=== PATIENT | male | born 1955 | race Caucasian/White ===

== ENCOUNTER 2016-11-22 07:58 | Outpatient (CLI) | payer MEDICAID ==
[~2016-11-22] VITALS: Ht 170.2 cm; Wt 118.2 kg
--- NOTE | ~2016-11-22 | HEMODYNAMI ---
PATIENT:COLBY LOVING MEDICAL RECORD: [id number] : 57 LOCATION:[facility] ADMISSION DATE: 11/22/16 Generatedon:11/22/201611:37 Patient name: COLBY LOVING Patient #: [id number] SSN: : 1955 Date of study: 11/22/2016 Page: Of Hemodynamic Procedure Report Patient Data Patient Demographics Procedure consent was obtained First Name: COLBY Gender: Male Last Name: FABIENNE : 1955 Middle Initial: EDENILSON Age: 61 year(s) Patient #: [id number] Race: Unknown Additional ID: [id number] Contact details [address]: [address] [place] [address] ROAD State: [place] City: [place] Zip code: [address] Past Medical History Performed procedures and imaging results Date Procedure Procedure Results Comments 11/08/2016 Stress testing Positive inferoapically with SPECT MPI Allergies Allergen Reaction Date Comments Reported Other allergy 11/22/2016 N Admission Admission Data Admission Date: 11/22/2016 Admission Time: 7:58 Admit Source: Other Insurance Payor: Private health insurance Height (in.): 67 BSA: 2.26 (m2) Height (cm.): 170.18 BMI: 40.81 (kg/m2) Weight (lbs.): 260.54 Weight (kg.): 118.18 Medications upon Admission Medications Dosage Times Administered Last Remarks per Delivery Day Date and Time Clopidogrel Yes 11/22/2016 0:00 Lab Results Lab Result Date: 11/22/2016 Lab Result Time: 8:00 Biochemistry Name Units Result Min Max BUN mg/dl 15 --(--*-)-- 7 18 Creatinine mg/dl 0.9 --(-*--)-- 0.6 1.3 CBC Name Units Result Min Max Hematocrit % 39.7 -*(----)-- 42 54 Hemoglobin g/dl 13.3 -*(----)-- 13.5 17.5 Procedure Procedure Types Cath Procedure Diagnostic Procedure [facility] w/Coronaries Miscellaneous Procedures Moderate Sedation up to 30 minutes Procedure Description Procedure Date Procedure Date: 11/22/2016 Procedure Start Time: 11:23 Procedure End Time: 11:32 Procedure Staff Name Function Ross Longo RN Nurse Balaji Almazan MD Performing Physician Emmett Nelson RT Monitor Johanny Lucas RT Scrub Procedure Data Cath Procedure Fluoroscopy Diagnostic fluoroscopy Total fluoroscopy Time: 1.2 time: 1.2 min min Diagnostic fluoroscopy Total fluoroscopy dose: 523 dose: 523 mGy mGy Contrast Material Contrast Material Type Amount (ml) Isovue 300 94 Entry Location Entry Primary Successful Side Size Upsize Upsize Entry Closure Borrego ccessful Closure Location (Fr) 1 (Fr) 2 (Fr) Remarks Device Remarks Radial Right 6 Fr Mechanical artery Short Compression Estimated blood loss: 5 ml Diagnostic catheters Device Type Used For End Catheter Placement Cordis RBL 4 catheter (NO Procedure CHARGE) Procedure Complications No complications Procedure Medications Medication Administration Route Dosage Oxygen NC 2 l/min Lidocaine 2% added to field 20 Heparin Flush Bag added to field 2 bags (1000units/500ml NS) 0.9% NaCl I.V. 100 ml/hr Versed I.V. 1 mg Fentanyl I.V. 50 mcg Versed I.V. 1 mg Fentanyl I.V. 50 mcg Versed I.V. 1 mg Fentanyl I.V. 50 mcg Radial Cocktail I.A. 1 syringe (Verapomil 2mg/Nitro 400mcg/Heparin 1500units) Versed I.V. 1 mg Fentanyl I.V. 50 mcg Hemodynamics Rest HGB: 13.3 (g/dl) Heart Rate: 83 (bpm) Snapshots Pre Cath Intra NCS Post Cath Vital Signs Time Heart Resp SPO2 etCO2 TE5tviv NIBP (mmHg) Rhythm Pain Sedatio n Rate (ipm) (%) (mmHg) (mmHg) Status Level (bpm) 10:49:04 82 22 97 0 0 177/109(151) NSR 0 (11) 10(A) , No pain 10:53:42 84 19 97 0 0 164/118(147) NSR 0 (11) 10(A) , No pain 10:58:15 90 17 96 0 0 182/111(144) NSR 0 (11) 10(A) , No pain 11:02:54 89 18 96 0 0 176/114(147) NSR 0 (11) 10(A) , No pain 11:07:30 89 18 96 0 0 171/111(135) NSR 0 (11) 10(A) , No pain 11:12:04 84 17 95 0 0 169/110(137) NSR 0 (11) 10(A) , No pain 11:16:39 87 18 96 0 0 170/118(137) NSR 0 (11) 9(A) , No pain 11:21:13 87 18 95 0 0 170/107(138) NSR 0 (11) 9(A) , No pain 11:25:48 87 18 96 0 0 165/104(136) NSR 0 (11) 9(A) , No pain 11:30:18 88 17 94 0 0 156/100(122) NSR 0 (11) 10(A) , No pain Medications Time Medication Route Dose Verified Delivered Reason Notes Effectiveness by by 10:46:50 Oxygen NC 2 l/min Balaji Buffie used for Tha Longo RN procedure 10:46:56 Lidocaine 2% added 20ml Balajimeeta Carpio for local to vial Tha Almazan MD anesthetic field 10:47:02 Heparin Flush added 2 bags Balaji Carpio used for Bag to Tha Almazan MD procedure (1000units/500ml field NS) 10:47:12 0.9% NaCl I.V. 100 Balaji Buffie Per ml/hr Tha Longo RN physician 11:13:21 Versed I.V. 1 mg Balaji Jamisonie for sedation Tha Longo RN 11:13:27 Fentanyl I.V. 50 mcg Balaji Buffie for sedation Tha Longo RN 11:17:00 Fentanyl I.V. 50 mcg Balaji Buffie for sedation Tha Longo RN 11:17:57 Versed I.V. 1 mg Balaji Buffie for sedation Tha Longo RN 11:23:20 Versed I.V. 1 mg Balaji Buffie for sedation Tha Longo RN 11:23:24 Fentanyl I.V. 50 mcg Balaji Jamisonie for sedation Tha Longo RN 11:25:19 Radial Cocktail I.A. 1 Balaji Balaji for (Verapomil syringe Tha Almazan MD vasodilation 2mg/Nitro 400mcg/Hepari 11:27:33 Versed I.V. 1 mg Balaji Carpio for sedation Tha Almazan MD 11:27:37 Fentanyl I.V. 50 mcg Balaji Carpio for sedation Tha Almazan MD Procedure Log Time Note 10:02:23 Reza Warner RT(R) was relieved by Emmett Omar RT(R) as monitoring person 10:02:40 Informed consent obtained and on chart 10:03:07 Diagnostic Cath Status : Elective 10:03:11 Admit Source: Other 10:03:14 Johanny Lucas RT(R) sent for patient. Start room use. 10:03:15 Time tracking: Regular hours 10:03:19 Plan of Care:Hemodynamics will remain stable., Cardiac rhythm will remain stable., Comfort level will be maintained., Respiratory function will remain adequate., Patient/ family verbilizes understanding of procedure., Procedure tolerated without complication., Recovers from procedure without complications.. 10:03:27 ACC Patient presents with Stable Angina CCS Anginal Class 2--Slight limitation of ordinary activity. 10:08:43 Patient allergic to Other allergyPCN 10:12:05 Lab Result : Hemoglobin 13.3 g/dl 10:12:05 Lab Result : Hematocrit 39.7 % 10:12:05 Lab Result : BUN 15 mg/dl 10:12:05 Lab Result : Creatinine 0.9 mg/dl 10:31:33 Patient received from Pre/Post Procedure Room to CCL 1 Alert and oriented. Tansferred to table in Supine position. 10:31:34 Warm blankets applied, and jacobo hugger turned on for patient comfort. 10:31:35 ECG and BP/O2 sat monitors applied to patient. 10:31:35 Correct patient and procedure confirmed by team. 10:31:41 H&P Date Dictated: 11/22/2016 Within 30 days and on chart., H&P Addendum completed by physician on day of procedure. (MUST COMPLETE FOR ALL OUTPATIENTS). 10:31:43 Pre-procedure instructions explained to patient. 10:31:43 Pre-op teaching completed and patient verbalized understanding. 10:38:09 Patient NPO since Midnight. 10:38:12 Is the patient allergic to Iodine/contrast media? No. 10:38:17 Is patient on blood thinner?Yes 10:38:22 ACC The patient was administered the following blood thiners within the last 24 hours: ACCPlavix 10:38:25 Patient diabetic? Yes. 10:38:28 If diabetic: On Metformin? Yes 10:38:32 If on Metformin: Last Dose? 11/20/2016 10:38:40 Snore? Yes 10:38:42 Sleep apnea? No 10:38:45 Opens mouth fully? Yes 10:38:53 Patient pain scale 0/10 ?. 10:39:02 IV patent on arrival in left hand with 0.9% NaCl at [facility]. 10:39:14 Right Radial & Right Groin area was prepped with chlora-prep and draped in sterile fashion 10:39:16 Sharps counted by scrub and verified by R.N. 10:39:16 Alarms reviewed by R. N. 10:39:18 Physician paged 10:46:50 Oxygen 2 l/min NC was given by Ross Longo RN; used for procedure; 10:46:56 Lidocaine 2% 20ml vial added to field was given by Balaji Almazan MD; for local anesthetic; 10:46:58 Deviated septum? No 10:46:59 Sticks out tongue? Yes 10:47:01 Airway obstruction? No ? 10:47:02 Heparin Flush Bag (1000units/500ml NS) 2 bags added to field was given by Balaji Almazan MD; used for procedure; 10:47:03 Dentures? No ? 10:47:12 0.9% NaCl 100 ml/hr I.V. was given by Ross Longo RN; Per physician; 10:47:21 Use device set Radial Dx 10:47:23 Tegaderm 4 x 4 opened to sterile field. 10:47:24 Acist Hand Control opened to sterile field. 10:47:24 Acist Manifold opened to sterile field. 10:47:26 Medline Cath Pack opened to sterile field. 10:47:26 Acist Syringe opened to sterile field. 10:47:27 Terumo 6Fr Slender Glidesheath opened to sterile field. 10:47:27 Bag Decanter opened to sterile field. 10:47:28 St Canelo 260cm J .035 wire opened to sterile field. 10:47:33 Vital chart was started 10:47:34 Baseline sample Acquired. 10:47:50 Rhythm: sinus rhythm 10:47:52 Full Disclosure recording started 10:48:14 Patient Height : 67 inches 10:48:20 Patient Weight : 260.54 lbs 10:48:27 Insurance Payor : Private health insurance 11:11:04 Final Timeout: patient, procedure, and site verified with staff and physician. All members of the team are in agreement. 11:11:04 --------ALL STOP TIME OUT------ 11:11:06 Right Radial & Right Groin site verified by team. 11:11:09 Physical assessment completed. ASA score P 2 - A patient with mild systemic disease as per Balaji Almazan MD. 11:11:12 Sedation plan: IV Moderate Sedation Versed, Fentanyl 11:11:37 Zero performed for pressure channel P1 11:13:21 Versed 1 mg I.V. was given by Ross Longo RN; for sedation; 11:13:27 Fentanyl 50 mcg I.V. was given by Ross Longo RN; for sedation; 11:17:00 Fentanyl 50 mcg I.V. was given by Ross Longo RN; for sedation; 11:17:57 Versed 1 mg I.V. was given by Ross Longo RN; for sedation; 11:23:20 Versed 1 mg I.V. was given by Ross Longo RN; for sedation; 11:23:24 Fentanyl 50 mcg I.V. was given by Ross Longo RN; for sedation; 11:23:37 Procedure started. 11:23:46 Local anesthetic to right radial artery with Lidocaine 2% by Balaji Almazan MD.INITIAL ACCESS ONLY 11:24:17 A 6 Fr Short sheath was inserted into the Right Radial artery 11:25:07 A CordGanos RBL 4 catheter (NO CHARGE) was advanced over the wire and used for Procedure. 11:25:19 Radial Cocktail (Verapomil 2mg/Nitro 400mcg/Heparin 1500units) 1 syringe I.A. was given by Balaji Almazan MD; for vasodilation; 11:25:46 LV gram done using [place]FF[place]ELD 11:25:50 Injector settings: Ml/sec: 5, Volume: 15, 11:25:52 LV hemodynamics recorded. 11:26:41 EF : 60 % 11:26:47 High Pressure Extension Tubing (Coker) opened to sterile field. 11:27:02 RCA angiography performed. 11:27:33 Versed 1 mg I.V. was given by Balaji Almazan MD; for sedation; 11:27:37 Fentanyl 50 mcg I.V. was given by Balaji Almazan MD; for sedation; 11:28:19 LCA angiography performed. 11:28:38 Catheter removed. 11::48 Sheath removed intact; hemostasis achieved with Mechanical Compression to the Right Radial artery. 11:28:51 Procedure ended.(Physican Out) 11:29:09 Terumo TR Band Large opened to sterile field. 11:29:18 Fluoroscopy time 01.20 minutes. 11:29:24 Fluoroscopy dose: 523 mGy 11:29:24 Flurop Dose total: 523 11:30:44 Contrast amount:Isovue 300 94ml. 11:31:00 Sharps counted by scrub and verified by R.N. 11:31:04 TR band inflated with 12cc of air. 11:31:05 Insertion/operative site no bleeding no hematoma. 11:31:12 Post-op/insertion site Right Radial artery dressed using a 4 x 4 and Tegaderm. 11:31:24 Post right radial artery:stable, soft, clean and dry 11:31:42 Post Procedure Pulses reassessed and unchanged 11:31:45 Post-procedure physical assessment completed. ASA score P 2 - A patient with mild systemic disease as per Balaji Almazan MD. 11:31:49 Post procedure rhythm: unchanged. 11:31:52 Estimated blood loss: 5 ml 11:31:53 Post procedure instruction explained to patient.Patient verbalizes understanding. 11:31:54 Patient needs reinforcement of post procedure teaching. 11:32:35 Procedure type changed to Cath procedure, Diagnostic procedure, LHC, LHC w/Coronaries, Miscellaneous Procedures, Moderate Sedation up to 30 minutes 11:32:37 Procedure and supply charges have been captured, reviewed, submitted and are correct. 11:32:40 Procedure Complication : No complications 11:32:42 Vital chart was stopped 11:32:44 See physician's report for complete and final results. 11:32:46 Report given to Pre/Post Procedure Room. 11:32:48 Patient transfered to Pre/Post Procedure Room with Stretcher. 11:32:50 Full Disclosure recording stopped 11:32:50 Procedure ended. 11:32:54 End room use (Document Last) Device Usage Item Name Manufacture Quantity Catalog Hospital Part Current Minimal Lot# / Number Charge Number Stock Stock Serial# Code Tegaderm 4 1 [id number] 5 x 4 Acist Acist 1 [id number] [id number] 5 Manifold [employer] Inc Acist Hand Acist 1 89242 732885 716214 803012 5 Control Medical Systems Inc Acist Acist 1 71780 [id number] 866476 [id number] 20 Syringe Medical Systems Inc Medline Cardinal 1 [id number] 639360 75446 802835 5 Cath Pack Health Bag Microtek 1 [id number] 108606 10632 927672 5 Decanter [employer] Inc. Terumo 6Fr Terumo 1 [id number] 810352 514932 [address]elo St Canelo 1 [id number] 413325 886630 507111 30 260cm J .035 wire Cordis RBL Cardinal 1 [id number] 109575 987592 5 4 catheter Health (NO CHARGE) High Merit 1 [id number] 368513 95385 341858 10 Pressure Medical Extension Tubing (Coker) Terumo TR Terumo 1 [id number] 380300 860745 40 Band Large Signature Audit [place] Stage Time Signature Unsigned Intra-Procedure 11/22/2016 Emmett Nelson RT(R) 11:33:11 AM RT(R) 11/22/2016 11:36:47 AM Intra-Procedure 11/22/2016 Emmett Nelson 11:37:10 AM RT(R) Signatures Monitor : Emmett Nelson RT Signature : Date : Time : [facility] [address] [place] [address]
[~2016-11-22 07:58] MED LIST: BENICAR HCT 40-1 TA1 PO; MYRBETRIQ PO; PROSCAR5 MG PO
[2016-11-22 08:14] VITALS: BP 175/96; Ht 170.2 cm; Wt 118.2 kg
[2016-11-22 08:57] LABS: CALC OSMOLALITY 284 mosm/kg (275-300); CALCIUM 8.5 mg/dL (8.5-10.1); CARBON DIOXIDE 31.8 mmol/L (21.0-32.0); CHLORIDE - SERUM 102 mmol/L (98-107); CREATININE - SERUM 0.9 mg/dL (0.6-1.3); GLUCOSE 199 mg/dL (74-106); POTASSIUM - SERUM 3.8 mmol/L (3.5-5.1); SODIUM 139 mmol/L (136-145); UREA NITROGEN 15 mg/dL (7-18); eGFR NON AFRICAN AMERICAN > 90 mL/min (90-120)
[2016-11-22 09:46] LABS: BASOPHILS 0.2 % (0.0-2.0); EOSINOPHILS 2.3 % (0-7); HEMATOCRIT 39.7 % (42.0-54.0); HEMOGLOBIN 13.3 g/dL (13.5-17.5); IMMATURE GRANULOCYTES 0.3 % (0-5); LYMPHOCYTES 14.6 % (15-50); MCH 29.3 pg (26.0-34.0); MCHC 33.5 g/dL (31.0-37.0); MCV 87.4 fL (80.0-100.0); MEAN PLATELET VOLUME 9.5 fL (7.4-10.4); MONOCYTES 8.8 % (2-11); NEUTROPHILS 73.8 % (40-80); PLATELET COUNT 294 10x3/uL (130-400); RBC 4.54 10x6/uL (4.20-6.10); RDW 12.9 % (11.5-14.5); WBC 10.9 10x3/uL (4.8-10.8)
--- NOTE | 2016-11-22 12:24 | NUR ---
1145-TR BAND INTACT- NO BLEEDING 1215-NO CHANGES NOTED, FAMILY AT SIDE
--- NOTE | 2016-11-22 14:02 | NUR ---
1345-IV D'C WITH CATH TIP INTACT, WRITTEN AND VERBAL INSTRUCTIONS GIVEN TO PT AND DAUGHTER. UP TO REST ROOM-VOID. DENIES FURTHUR NEEDS. D'C HOME WITH FAMILY
--- NOTE | 2016-11-29 10:08 | OP ---
PATIENT NAME: COLBY LOVING MEDICAL RECORD: [id number] :57 LOCATION:D[facility] ADMISSION DATE: SURGEON: IHSAN AGUDELO MD DATE OF OPERATION: 11/22/2016 PROCEDURES: 1. Left heart catheterization. 2. Selective coronary angiography. 3. Left ventriculogram. INDICATION: Chest pain compatible with angina and abnormal nuclear stress test. DESCRIPTION OF PROCEDURE: After informed consent was obtained and after a detailed explanation of the risks, benefits as well as alternative therapies, the patient elected to proceed with angiogram and heart catheterization. The right radial area was prepped and draped in normal sterile fashion. The right radial artery was cannulated via modified Seldinger technique with placement of 5-Tajik sheath. All catheters exchanged through this sheath. FINDINGS: The left ventriculogram was performed in standard 30-degree SHEFFIELD view, reveals good cardiac wall motion throughout all segments. Overall ejection fraction estimated at 60%. SELECTIVE CORONARY ANGIOGRAPHY: 1. Left main showed no significant angiographic disease. 2. Left anterior descending, left circumflex, right coronary are smooth-walled vessels with no angiographic evidence of coronary artery disease. OVERALL IMPRESSION: 1. No angiographic evidence of coronary artery disease. 2. Normal left heart pressures. 3. Normal left ventricular systolic function. Chest pain is noncardiac in etiology. No further cardiac workup needs to be ascertained. TRANSINT:[id number] Voice Confirmation ID: [id number] DOCUMENT ID: [id number] IHSAN AGUDELO MD at 1008 CC: [id number] DICTATION DATE: 11/22/16 1133 PODIATRIC MEDICINE PROFESSOR: 11/22/16 1859 [facility] CLI 11/22/16 [place] [id number]
--- NOTE | 2016-11-29 10:08 | HP ---
PATIENT: COLBY LOVING MEDICAL RECORD: [id number] ACCOUNT: [id number] LOCATION:[facility] : 57 ADMISSION DATE: 11/22/16 HISTORY AND PHYSICAL EXAMINATION DIAGNOSES: 1. Angina. 2. Abnormal nuclear stress test, inferoapical ischemia. 3. Hypertension. 4. Hyperlipidemia. 5. Noninsulin-dependent diabetes. HISTORY OF PRESENT ILLNESS: This is a noninsulin-dependent diabetic, who has been having episodes of chest pain, chest discomfort compatible with angina. Nuclear stress test is grossly abnormal with a large perfusion defect inferoapically. He is now brought for cardiac catheterization. PHYSICAL EXAMINATION: GENERAL APPEARANCE: Well-nourished, well-developed, appears stated age. Level of distress, comfortable. PSYCHIATRIC: Mental status, alert, normal affect. Orientation, oriented to time, place and person. EYES: Lids and conjunctiva, noninjected. No discharge, no pallor. ENT: Lips, teeth, gums, normal dentition. Oropharynx, no cyanosis, no pallor. NECK: Carotid arteries, bilateral normal upstroke, no bruits, no thrills. JUGULAR VEINS: No jugular venous pressure or distention. CERVICAL LYMPH NODES: Nontender, nonenlarged. THYROID: Not enlarged. Nontender. No nodules. LUNGS: Respiratory effort, unlabored. CHEST: Normal curvature. No thoracic deformity. No chest wall tenderness. Percussion, resonant. Auscultation, clear. No wheezes, no rales, no rhonchi. CARDIOVASCULAR: Precordial exam, nondisplaced. No heaves or pericardial thrills. Rate and rhythm, regular. Heart sounds, normal S1, normal S2. No S3, no gallop, no rub. Systolic murmur, not heard. Diastolic murmur, not heard. EXTREMITIES: No cyanosis, no edema. Peripheral pulses, full and equal in all extremities, except as noted. No bruits appreciated. ABDOMEN: Soft, nondistended. Normal aorta. No bruit. Nontender. No masses. Liver, nontender, no hepatomegaly. Spleen, nontender, no splenomegaly. MUSCULOSKELETAL: No joint tenderness. No joint swelling. No erythema. NEUROLOGICAL: Normal gait, normal strength, normal tone. SKIN: Warm and dry. REVIEW OF SYSTEMS: The patient reports easy bruising but reports no swollen glands. The patient reports no fever, no night sweats, no significant weight gain, no significant weight loss. No significant exercise tolerance. The patient reports no dry eyes, no irritation, no vision change. Patient reports no difficulty hearing and no ear pain. Patient reports no frequent nose bleeds or nose and sinus problems. Patient reports on arm pain on exertion. No shortness of breath while lying down. No history of heart murmur. Patient reports no cough, no wheezing or coughing up blood. Patient reports no abdominal pain, no vomiting. Normal appetite. No diarrhea and not vomiting blood. No nausea and no constipation. Patient reports no incontinence. No difficulty urinating. No hematuria. No increased frequency. Patient reports no muscle aches. No weakness, no arthralgias, no back pain. No swelling of the extremities. Patient reports no abnormal mole, no jaundice, no rashes. Reports HISTORY AND PHYSICAL [id number] COLBY LOVING no loss of consciousness. No weakness and no numbness. No seizures, dizziness, or headaches. The patient reports no depression, no sleep disturbance, feeling safe in a relationship and no alcohol abuse. Patient reports on fatigue. Reports no runny nose or sinus pressure. No itching, no hives, and no frequent sneezing. OVERALL IMPRESSION: Worsening angina with abnormal nuclear stress test, most likely he does have hemodynamically significant coronary artery disease. We will proceed with coronary angiography. Further care depends upon findings of the angiography. TRANSINT:[id number] Voice Confirmation ID: [id number] DOCUMENT ID: [id number] IHSAN AGUDELO MD at 1008 CC: [id number] DICTATION DATE: 11/22/16 1040 PRODUCTION MACHINE TENDER: 11/22/16 1116 [facility] CLI 11/22/16 [place] [address]
== END 2016-11-22 13:45 | disposition home or self-care (01) ==
LOC: D.CATH 07:58
PROVIDERS: Internal Medicine Interventional Cardiology
DX: I20.9 Angina pectoris, unspecified (principal); R94.39 Abnormal result of other cardiovascular function study; I10 Essential (primary) hypertension; E78.5 Hyperlipidemia, unspecified; E11.9 Type 2 diabetes mellitus without complications